=== PATIENT | female | born 1985 ===

== ENCOUNTER 2025-04-01 12:14 | Emergency (ER) | payer MEDICAID, SELFPAY ==
[2025-04-01 12:18] VITALS: BP 133/63; PULSE 78; RESP 16; TEMP 36.8; O2SAT 98; BMI 24.2
--- NOTE | 2025-04-01 12:25 | ED_ITS ---
HPI - General Adult General Chief complaint: General Medical Stated complaint: vaginal issues Time Seen by Provider: 04/01/25 14:10 Source: patient and emergency veterinary technician (senegalese - VOYCE) Mode of arrival: ambulatory Limitations: language barrier (senegalese) History of Present Illness ED Provider: RUBA ARGUETA PA-C HPI narrative: 39-year-old female presents to the ED today for evaluation of increased vaginal discharge x3 months. Endorses associated vaginal irritation and itching. Denies any vaginal bleeding, fever, chills, abdominal pain, or flank pain. She states she is not sexually active and denies concern for STDs. She was evaluated for these symptoms at urgent care last month. She states she was tested for STDs while there however never received these results. At the time, she was treated with nitrofurantoin and fluconazole however symptoms have remained unchanged. Related Data Previous Rx's ?Medication ?Instructions ?Recorded fluconazole 150 mg tablet 150 mg PO Q3D 2 doses #2 tab s 04/01/25 metronidazole 500 mg tablet 500 mg PO BID 7 days #14 t abs 04/01/25 Allergies Allergy/AdvReac Type Severity Reaction Status Date / Time No Known Allergies Allergy Verified 04/01/25 12:25 Review of Systems Review of Systems: Yes all other systems are reviewed and are negative PMFSH Past Medical History Attestation statement: The following information was validated with the patient. Source: old records reviewed and nursing notes reviewed Social History Social History Advance Directives: No Advance Directives Information Provided: Yes Physical Exam ED Vital Signs: Vital Signs - 24 hr 04/01/25 12:18 04/01/25 15:50 Temperature 98.2 F 98.2 F Pulse Rate 78 78 Respiratory Rate 16 16 Blood Pressure 133/63 133/63 Pulse Oximetry 98 98 Oxygen Delivery Method Room Air Room Air BMI result Body Mass Index 24.2 vital signs stable, afebrile General: Well appearing, in no acute distress. Skin: Warm, dry, intact. No rashes or lesions. Head: Normocephalic, atraumatic. EENT: Hearing is intact b/l. Conjunctiva clear. PERRLA. EOM intact. Moist mucous membranes.? Neck: Supple without LAD Cardiac: Chest wall symmetric. RRR Lungs: Normal respiratory effort without accessory muscle use. CTA bilaterally. Abdomen: Soft, non-tender, non-distended. No rebound tenderness or guarding. Positive BS x4. no cvat. Sensitive exam performed with Yumiko ADAM present in room to radiographer angiogram. External genitalia is normal in appearance without lesions, swelling, masses or tenderness. Vaginal canal is pink and moist without lesions. There is white discharge in the vaginal canal. No fishy odor noted. Cervix is non-tender without lesions or erosions. Uterus is non-tender and normal in size. Ovaries are non-tender without palpable masses or enlargement. No cervical motion tenderness on bimanual exam. Back: No midline spinous or paraspinal tenderness. No step off deformity. Ext: Upper and lower extremities atraumatic, without tenderness, deformity, swelling or erythema Neuro: AOx3. Normal speech. Ambulating with steady gait. Course Course Course Narrative: Katelyn Malloryaletha SENIOR WEB ARCHITECT 04/01 7367 This is a rapid medical exam. Deferred additional HPI, ROS, PE to primary provider. 39 yo female healthy here with white vaginal discharge >1 month despite being treated for a yeast infection. Would like STI testing Will obtain UA, ur preg, CT NG, BV panel VSS Reevaluation(s) Reevaluation #1: Urine does not demonstrate infection. Patient's exam is concerning for trich v BV infection- After discussion w/ patient, she will be treated with flagyl and diflucan. Will hold on CTNG treatments as these are less likely - swabs sent. Patient will be contacted with any positive results. Patient has remained stable throughout ED visit today. Discussed worrisome signs and symptoms and when to return to the ED. All questions answered at this time. Patient is agreeable with disposition and stable for discharge. Medical Decision Making Medical Decision Making MDM Narrative: 39-year-old female presents to the ED today for evaluation of increased vaginal discharge x3 months. vital signs stable, afebrile. she is well appearing and in NAD. her abdominal exam is benign. on exam, abdomen is soft, non-tender, non- distended. No rebound tenderness or guarding. Positive BS x4. no cvat. Sensitive exam performed with Yumiko ADAM present in room to radiographer angiogram. External genitalia is normal in appearance without lesions, swelling, masses or tenderness. Vaginal canal is pink and moist without lesions. There is white discharge in the vaginal canal. No fishy odor noted. Cervix is non-tender without lesions or erosions. Uterus is non-tender and normal in size. Ovaries are non-tender without palpable masses or enlargement. No cervical motion tenderness on bimanual exam. Differential diagnosis includes gonorrhea, BV, chlamydia, Trichomonas, UTI. unlikely PID. Plan for vaginal swabs, urinalysis and re-evaluation. Differential Diagnosis Differential Diagnoses: The differential diagnosis associated with the presentation includes as above. Admission/Observation not indicated Lab Data MDM Lab Attestation statement: I reviewed the patient's lab results. as above. Labs: Lab Results 04/01/25 04/01/25 Range/Units 12:40 15:27 Urine Color Yellow Urine Appearance Clear Urine pH 7.0 (5.0-9.0) Ur Specific Baldwin <= 1.005 (1.005-1.025) Urine Protein Negative (Neg-Trace) mg/dL Urine Glucose (UA) Negative (Negative) mg/dL Urine Ketones Negative (Negative) mg/dL Urine Blood Negative (Negative) Urine Nitrite Negative (Negative) Ur Leukocyte Esterase Trace H (Negative) Urine RBC 0-2 (0-2) /HPF Urine WBC 0-5 (0-5) /HPF Ur Squamous Epith Cells 0-2 (0-2) /HPF Urine Bacteria None Seen (None Seen) Hyaline Casts 0-2 (0-2) /LPF Urine Test NEGATIVE (NEGATIVE) Ur N gonorrhoeae DNA (PCR) NOT DETECTED (Not Detect.) Chlam trachomat DNA PCR NOT DETECTED (Not Detect.) Ur Chlamydia DNA (PCR) NOT DETECTED (Not Detect.) N.gonorrhoeae DNA (PCR) NOT DETECTED (Not Detect.) External Record Review External record reviewed: Inpatient record Prescription Management I considered prescription management with: Antibiotic (flagyl) and Other (diflucan) Social Determinants Patient?s care significantly limited by Social Determinants of Health including: Other Social Determinant of Health Critical Care Time Critical Care Time Critical Care Time: No Discharge Plan Discharge Clinical Impression: Vaginal discharge Patient Disposition: Home, Self-Care Instructions: Vaginal Discharge (ED) Additional Instructions: You have been evaluated in the Emergency Department today for concerns of v aginal discharge and irritation. You were tested today for gonorrhea, chlamydia, bacterial vaginosis, and trichomonas and the results are still pending. You will receive a phone call in 2-3 days with any positive results. I am treating you for bacterial vaginosis and suspected yeast infection. A single dose of diflucan (fluconzole) has been sent to your pharmacy to treat for trichomonas (yeast infection). I have sent flagyl which will treat for bacterial vaginosis. Take this as prescribed and to completion. Do not have sexual intercourse for 10 days or until you test negative for all STDs. If you have intercourse again with an untreated partner, you will be reinfected. Practice safe sex and use a condom. I have also provided you with a referral to he Women's Health doctor. You may call them to establish care. Will not call you. Return with any new or worsening symptoms. In the case of an emergency call 911. Hoy la evaluaron en el Departamento de Emergencias por presentar flujo vaginal e irritaci?n. Hoy le realizaron pruebas para gonorrea, clamidia, vaginosis bacteriana y tricomoniasis, y a?n se esperan los resultados. Recibir? tyson llamada en 2 o 3 d?as con los resultados positivos. La estoy tratando por vaginosis bacteriana y sospecha de candidiasis vaginal. Le envi? tyson dosis ?roxanne de Diflucan (fluconazol) a strickland farmacia para tratar la tricomoniasis (candidiasis vaginal). Tambi?n le envi? Flagyl para tratar la vaginosis bacteriana. T?mccarthy seg?n las indicaciones y complete el tratamiento. No tenga relaciones sexuales saige 10 d?as o hasta que obtenga un resultado negativo en todas las pruebas de ETS. Si tiene relaciones sexuales nuevamente con tyson gita que no díaz recibido tratamiento, se reinfectar?. Practique sexo seguro y use cond?n. Tambi?n le proporcion? tyson referencia para la ginec?loga. Puede llamarla para programar strickland atenci?n. No la llamar?. Regrese si presenta alg?n s?ntoma nuevo o si stacey s?ntomas empeoran. En claire de emergencia, llame al 911. Prescriptions: New metronidazole 500 mg tablet 500 mg PO BID 7 Days Qty: 14 0RF fluconazole 150 mg tablet 150 mg PO Q3D Qty: 2 0RF Rx Instructions: may repeat second dose 72 hrs after first dose if symptoms persist Referrals: [facility] [Provider Group] [facility] [place] [facility] [Provider Group] Physician,None [Primary Care Provider, Medical] Interventions: ED Discharge Assessment Last Done: 04/01/25 15:50 Discharge Date/Time: 04/01/25 15:50 Print Language: Slovak
[2025-04-01 12:48] LABS: Appearance Urine Clear; Glucose Urine UA Negative (Negative); PH 7.0 (5.0-9.0); Specific Gravity - Urine <= 1.005 (1.005-1.025); UMIC TRIGGER UACC YES
[2025-04-01 12:52] LABS: UPreg QC Valid YES
[2025-04-01 15:40] LABS: CT PCR Urine NOT DETECTED (Not Detect.); NG PCR Urine NOT DETECTED (Not Detect.)
[2025-04-01 15:50] VITALS: BP 133/63; PULSE 78; RESP 16; TEMP 36.8; O2SAT 98
[2025-04-02 09:48] LABS: Bacterial Vaginosis PCR POSITIVE (Negative); Candida Group PCR DETECTED (Not Detect); Candida glab krusei PCR NOT DETECTED (Not Detect); Trichomonas vaginalis PCR NOT DETECTED (Not Detect)
[2025-04-02 10:18] LABS: CT PCR NOT DETECTED (Not Detect.); NG PCR NOT DETECTED (Not Detect.)
== END 2025-04-01 15:50 | disposition home or self-care (01) ==
PROVIDERS: Nurse Practitioner Family; Physician Assistant Medical; Emergency Provider Emergency Medicine
DX: N89.8 Other specified noninflammatory disorders of vagina (principal)
CPT/HCPCS: 81001; 81025; 81515; 87491; 87591; 87661; 99282; 99283

== ENCOUNTER 2025-04-19 16:13 | Outpatient (REF) | payer MEDICAID, SELFPAY ==
--- OUTSIDE RECORDS SUMMARY | 2025-04-19 11:30 | XMS_ITS | Encounter Summary ---
Author Organization [employer] Address [address] [place] [address] [address] [place] [address] Care Team Providers Care Head Of Sales And Marketing Name Role Phone Jer Scott CNP Primary Care Provider [phone] Reason for Visit * Reason Comments Consult Consult ext wisdom t eeemerald Encounter Details Date Type Department Care Team ([facility] st Contact Info) Description 04/19/2025 11:30 AM EST Office Visit [facility] ADULT D[facility] [address] [place] [address] Sebastien Knott [address] [place] [address] Social History Tobacco Use Types Packs/Day Years Used Date Smoking Tobacco: Never Passive Smoke Exposure: Never Smokeless Tobacco: Never Depression Answer Date Recorded Patient Health Questionnaire-9 Score 0 04/19/2025 Patient Health Questionnaire-9 Score 0 04/19/2025 Last PHQ-9: Questionnaire Data Not on file 1 06/20/2024 Housing Stability Answer Date Recorded What is your housing situation today? I have tarah hernandez 04/19/[address] you li ve. Do you have problems with any of the following? None of the above 04/19/2025 Food Insecurity Answer Date Recorded Within the past 12 months, y ou worried that your food would run out before you got money to buy more: Never True 04/19/2025 Within the past 12 months,th e food you bought just didn't last and you didn't have enough money to get more: Never True 07/2024 Transportation Answer Date Recorded In the past 12 months, has l ack of transportation kept you from medical appts, meetings, work or from getting things needed for daily living? No 04/19/2025 Utilities Answer Date Recorded In the past 12 months, has t he electric, gas, oil or water company threatened to shut off services in your home? No 04/19/2025 Depression Answer Date Recorded Patient Health Questionnaire-2 Score 0 04/19/2025 Internet Access Answer Date Recorded Internet Access Q1 Yes 04/19/2025 Internet Access Q2 Not on file 04/19/2025 Comments No Sex and Gender Information Value Date Recorded Sex Assigned at Female 01/24/2025 11:15 AM EDT Legal Sex Female 11:14 AM EDT Gender Identity Female 01/24/2025 11:15 AM EDT Sexual Orientation Straight 01/24/2025 11 :15 AM EDT documented as of this encounter Functional Status * Over the past 2 weeks, how often have you been bothered by any of the following problems? Question Answer Date of Assessment Author Patient Health Questionnaire -2 Score 0 04/19/2025 2:32 PM Jose Corrales [place] * Little interest or pleasure in doing things Answer Date of Assessment Author Not at all 04/19/2025 2:32 PM EST [employer] Anna brush [place] * Feeling down, depressed, or hopeless Answer Date of Assessment Author Not at all 04/19/2025 2:32 PM EST [employer] Anna brush [place] * Trouble falling or staying asleep, or sleeping too much Answer Date of Assessment Author Not at all 04/19/2025 2:32 PM EST [employer] Anna brush [place] * Feeling tired or having little energy Answer Date of Assessment Author Not at all 04/19/2025 2:32 PM EST [employer] Anna brush [place] * Poor appetite or overeating Answer Date of Assessment Author Not at all 04/19/2025 2:32 PM EST [employer] Anna brush [place] * Feeling bad about yourself - or that you are a failure or have let yourself or your family down Answer Date of Assessment Author Not at all 04/19/2025 2:32 PM EST [employer] Anna brush [place] * Trouble concentrating on things, such as reading the newspaper or watching television Answer Date of Assessment Author Not at all 04/19/2025 2:32 PM EST [employer] Anna brush [place] * Moving or speaking so slowly that other people could have noticed? Or the opposite - being so fidgety or restless that you have been moving around a lot more than usual. Answer Date of Assessment Author Not at all 04/19/2025 2:32 PM EST [employer] Anna brush [place] * Thoughts that you would be better off or hurting yourself in some way Answer Date of Assessment Author Not at all 04/19/2025 2:32 PM EST [employer] Anna brush [place] * Patient Health Questionnaire-9 Score Answer Date of Assessment Author 0 04/19/2025 2:32 PM EST [employer] Anna brush [place] * Over the last 2 weeks, how often have you been bothered by any of the following problems? Question Answer Date of Assessment Author Feeling nervous, anxious, or on edge 0 04/19/2025 2:34 PM EST Jose Cisneros MA Not being able to stop or control worrying 0 04/19/2025 2:34 PM EST Jose Cisneros MA Worrying too much about different things 0 04/19/2025 2:34 PM EST Jose Cisneros MA Trouble relaxing 0 04/19/2025 2:34 PM EST D Anna Soto MA Being so restless that it is hard to sit still 0 04/19/2025 2:34 PM Jose Corrales MA Becoming easily annoyed or irritable 0 04/19/2025 2:34 PM EST Jose Cisneros MA Feeling afraid as if somethi ng awful might happen 0 04/19/2025 2:34 PM EST Jose Cisneros MA TEODORA-7 Total Score 0 04/19/2025 2:34 PM Anna Corrales MA documented as of this encounter Plan of Treatment Upcoming Encounters Date Type Department Care Team (Late st Contact Info) Description 05/24/2025 10:00 AM EST Office Visit [facility] ADULT D[facility] [address] [place] [address] Sebastien Knott [address] [place] [address] 06/22/2025 9:00 AM EST Procedure Visit [facility] P[facility] [address] [place] [address] Jer Scott CNP [address] [place] [address] documented as of this encounter Visit Diagnoses Not on filedocumented in this encounter Additional Health Concerns Assessment Noted Time PHQ-9 Depression Total Score: 0 04/19/20 2:32 PM EST documented as of this encounter Care Teams Head Of Sales And Marketing Relationship Specialty Start Date End Date Jer Scott CNP [address] [place] [address] PCP - General Family Medicine 04/19/25 documented as of this encounter
--- OUTSIDE RECORDS SUMMARY | 2025-04-19 14:00 | XMS_ITS | Encounter Summary ---
Author Organization [employer] Address [address] [place] [address] [address] [place] [address] Care Team Providers Care Corporate Compliance Officer Name Role Phone Jer Scott CNP Primary Care Provider [phone] Encounter Details Date Type Department Care Team ([facility] st Contact Info) Description 04/19/2025 2:00 PM EST Office Visit [facility] [address] [place], [place] [phone] Jer Scott CNP [address] [place], [place] [phone] Encounter to establish care (Primary Dx); Vaginal discharge Social History Tobacco Use Types Packs/Day Years [...] AM EDT documented as of this encounter Last Filed Vital Signs Vital Sign Reading Time Taken Comments Blood Pressure 110/76 04/19/2025 2:14 PM EST Pulse 86 04/19/2025 2:14 PM EST Temperature 36.6 C (97.9 F) 04/19/2025 2:14 PM EST Respiratory Rate 16 04/19/2025 2:14 PM EST Oxygen Saturation 99% 04/19/2025 2:14 PM EST Inhaled Oxygen Concentration - - Weight 67.1 kg (148 lb) 04/19/2025 2:14 PM EST Height 152.4 cm (5') 04/19/2025 2:14 PM EST Body Mass Index 28.9 04/19/2025 2:14 PM EST documented in this encounter Functional Status * Over the past 2 weeks, how often have you been bothered by any of the following problems? Question Answer Date of Assessment Author Patient Health Questionnaire -2 Score 0 04/19/2025 2:32 PM EST Jose Cisneros [place] * Little interest or pleasure in doing things Answer Date of Assessment Author Not at all 04/19/2025 2:32 PM EST [employer] Anna brush [place] * Feeling down, depressed, or hopeless Answer Date of Assessment Author Not at all 04/19/2025 2:32 PM EST [employer] Anna brush [place] * Trouble falling or staying asleep, or sleeping too much Answer Date of Assessment Author Not at all 04/19/2025 2:32 PM EST [employer] Anna brush [place] * Feeling tired or [...] Author Not at all 04/19/2025 2:32 PM JOSE [employer] Anna brush [place] * Moving or speaking so slowly that other people could have noticed? Or the opposite - being so fidgety or restless that you have been moving around a lot more than usual. Answer Date of Assessment Author Not at all 04/19/2025 2:32 PM EST [employer] Anna brush [place] * Thoughts that you would be better off or hurting yourself in some way Answer Date of Assessment Author Not at all 04/19/2025 2:32 PM EST [employer] Anna brush [place] * Patient Health Questionnaire-9 Score Answer Date of Assessment Author 0 04/19/2025 2:32 PM EST [employer] Anna brush [place] * Over the last 2 weeks, how often have you been bothered by any of the following problems? Question Answer Date of Assessment Author Feeling nervous, anxious, or on edge 0 04/19/2025 2:34 PM EST Jose Cisneros MA Not being able to stop or control worrying 0 04/19/2025 2:34 PM EST Melani-Jose Katz [place] Worrying too much about different things 0 04/19/2025 2:34 PM EST Jose Cisneros MA Trouble relaxing 0 04/19/2025 2:34 PM EST Anna Latif MA Being so restless that it is hard to sit still 0 04/19/2025 2:34 PM EST Jose Cisneros MA Becoming easily annoyed or irritable 0 04/19/2025 2:34 PM EST Jose Cisneros MA Feeling afraid as if somethi ng awful might happen 0 04/19/2025 2:34 PM Jose Corrales MA TEODORA-7 Total Score 0 04/19/2025 2:34 PM Anna Corrales MA documented as of this encounter Progress Notes * Jer Scott, ANALISA - 04/19/2025 2:00 PM EST Subjective: Angy Jack is a 39 y.o. female with PMH of panic attacks and vitiligowho presents to the office for a new patient visit. Previous PCP unknown. Interim history: Reports she was recently treated for an infection at external facility in [place]. She didn't receive a call regarding any of her results. She was prescribed flagyl per chart review. Current concerns: Vaginal discharge: she is endorsing white, chunky discharge with itching. She is sexually active. She reports having full STI panel at external facility. She declines repeat full panel today, she agrees to vaginal self swab. Problem List[1] Surgical History[2] Family History[3] Social History Living situation: has 3 children Employment/Education: not curently Diet/exercise: not reported Substance use: denies all substance use Sexual activity: yes, AMAB partners Contraception: none, not interested in discussing contraception Mental health: No data recorded No data recorded Patient's last menstrual period was 04/16/2025. They are regular occurring each month. Allergies[4] Review of Systems Vitals: 04/19/25 1414 BP: 110/76 BP Location: Left arm Patient Position: Sitting BP Cuff Size: Adult Pulse: 86 Resp: 16 Temp: 97.9 ??F (36.6 ??C) TempSrc: Oral SpO2: 99% Weight: 148 lb (67.1 kg) Height: 5' (1.524 m) Physical Exam Constitutional: Appearance: Normal appearance. She is normal weight. Cardiovascular: Rate and Rhythm: Normal rate and regular rhythm. Pulses: Normal pulses. Heart sounds: Normal heart sounds. No murmur heard. No friction rub. No gallop. Pulmonary: Effort: Pulmonary effort is normal. No respiratory distress. Breath sounds: Normal breath sounds. No wheezing or rales. Neurological: General: No focal deficit present. Mental Status: She is alert and oriented to person, place, and time. Psychiatric: Mood and Affect: Mood normal. Behavior: Behavior normal. Thought Content: Thought content normal. Judgment: Judgment normal. Assessment & Plan Encounter to establish care 1. Anticipatory guidance discussed. Specific topics reviewed: PMHx, PSHx, PFHx, drugs, ETOH, and tobacco, importance of regular dental care, importance of regular exercise, importance of varied diet, minimize junk food, and sex; STD and prevention as appropriate. 2. Age appropriate screenings discussed and recommended. 3. Routine labs ordered today. Orders: HIV-1/2 Antigen and Antibodies, Fourth Generation, with Reflexes; Future Hepatitis C Antibody with Reflex to HCV, RNA, Quantitative, Real-Time PCR; Future CBC auto differential; Future Lipid Panel, Standard; Future Comprehensive Metabolic Panel; Future Vaginal discharge Due to patient's symptoms and recent antibx history for vaginal infection, I will treat empiricallyfor elizabet infection. We will await results for BV swab and make changes to plan as appropriate We will alsop schedule an appointment for f/u for updated pap smear. Orders: Bacterial Vaginosis Panel fluconazole (Diflucan) 150 MG tablet; Take 1 tablet (150 mg) by mouth 1 (one) time for 1 dose. Current Medications[5] Immunization History Administered Date(s) Administered Influenza, IIV3, injectable 03/01/2014, 03/23/2015, 03/12/2016, 07/03/2017 PPD Test 03/26/2016 Tdap 05/03/2014, 08/22/2016, 03/09/2020 No follow-ups on file. [1] Patient Active Problem List Diagnosis Arcuate uterus Panic attacks Vitiligo [2] No past surgical history on file. [3] No family history on file. [4] No Known Allergies [5] Current Outpatient Medications Medication Sig Dispense Refill aspirin 81 MG chewable tablet Use 81 mg in the mouth or throat Once per day. metroNIDAZOLE (Flagyl) 500 MG tablet Take 1 tablet by mouth 2 times daily. nitrofurantoin, macrocrystal-monohydrate, (Macrobid) 100 MG capsule Take 1 capsule by mouth 2 timesdaily. No current facility-administered medications for this visit. documented in this encounter Plan of Treatment Upcoming Encounters Date Type Department Care Team (Late st Contact Info) Description 05/24/2025 10:00 AM EST Office Visit [facility] [address] [place] [address] Sebastien Knott [address] [place] [address] 06/22/2025 9:00 AM EST Procedure Visit [facility] [address] [place] [address] Jer Scott CNP [address] [place] [address] Scheduled Orders Name Type Priority Associated Diagnoses Orde r Schedule HIV-1/2 Antigen and Antibodies, Fourth Generation, with Reflexes Lab Routine Encounter to establish care Expected: 04/19/2025 (Approximate), Expires: 04/19/2026 Hepatitis C Antibody with Reflex to HCV, RNA, Quantitative, Real-Time PCR Lab Routine Encounter to establish care Expected: 04/19/2025, Expires: 04/19/2026 CBC auto differential Lab Routine Encounter to establish care Expected: 04/19/2025 (Approximate), Expires: 04/19/2026 Lipid Panel, Standard Lab Routine Encounter to establish care Expected: 04/19/2025 (Approximate), Expires: 04/19/2026 Comprehensive Metabolic Panel Lab Routine Encounter to establish care Expected: 04/19/2025 (Approximate), Expires: 04/19/2026 Bacterial Vaginosis Panel Microbiology Routine Vaginal discharge Ordered: 04/19/2025 documented as of this encounter Visit Diagnoses Diagnosis Encounter to establish care- Primary Vaginal discharge Leukorrhea, not specified as infective documented in this encounter Additional Health Concerns Assessment Noted Time PHQ-9 Depression Total Score: 0 04/19/20 2:32 PM EST documented as of this encounter Care Teams Corporate Compliance Officer Relationship Specialty Start Date End Date Jer Scott CNP [address] [place] [address] PCP - General Family Medicine 04/19/25 documented as of this encounter
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
--- OUTSIDE RECORDS SUMMARY | 2025-04-19 18:54 | XMS_ITS | Encounter Summary ---
Author Organization [employer] Address [address] [facility] [address] [place] [address] Care Team Providers Care Eye Dropper Assembler Name Role Phone Jer Scott ANALISA Primary Care Provider [phone] [phone] Encounter Details Date Type Department Care Team (Latest Contact Info) Description 04/19/2025 Travel Social History Tobacco Use Types Packs/Day Years [...] -2 Score 0 04/19/2025 2:32 PM EST Polo-ColonJose [place] * Little interest or pleasure in [...] Not at all 04/19/2025 2:32 PM EST Polo-C Anna arciniega [place] * Feeling tired or having little [...] relaxing 0 04/19/2025 2:34 PM EST D madrigalAnna Montes De Oca [place] Being so restless that it is hard to sit still 0 04/19/2025 2:34 PM EST Jose Cisneros MA Becoming easily annoyed or irritable 0 04/19/2025 2:34 PM EST Melani-Jose Katz MA Feeling afraid as if somethi ng awful might happen 0 04/19/2025 2:34 PM EST Jose Cisneros MA TEODORA-7 Total Score 0 04/19/2025 2:34 PM EST Anna Cisneros MA documented as of this encounter Plan of Treatment Upcoming Encounters Date Type Department Care Team (Late st Contact Info) Description 05/24/2025 10:00 AM EST Office Visit [facility] ADULT DENTAL [address] [place] [address] Sebastien Knott [address] [place] [address] 06/22/2025 9:00 AM EST Procedure Visit [facility] MED & PEDS [address] [place] [address] Jer Scott CNP [address] [place] [address] documented as of this encounter Visit Diagnoses Not on filedocumented in this encounter Additional Health Concerns Assessment Noted Time PHQ-9 Depression Total Score: 0 04/19/20 2:32 PM EST documented as of this encounter Care Teams Eye Dropper Assembler Relationship Specialty Start Date End Date Jer Scott CNP [address] [place] [address] PCP - General Family Medicine 04/19/25 documented as of this encounter
--- OUTSIDE RECORDS SUMMARY | 2025-04-19 18:54 | XMS_ITS | Encounter Summary ---
Author Organization [employer] Address [address] [facility] [address] [place] [address] Care Team Providers Care Functional Analyst Name Role Phone Tyler Morrissole HAUSER Primary Care Provider +1 [phone] Reason for Visit * Reason Onset Date Comments chart prep 04/19/2025 Encounter Details Date Type Department Care Team ([facility] st Contact Info) Description 04/19/2025 Telephone [facility] MED & PEDS [address] [place] [id number] Blayne Machias, [place] chart prep Social History Tobacco Use Types Packs/Day Years [...] AM EDT documented as of this encounter Miscellaneous Notes * Telephone Encounter - Anna Cisneros [place] - 04/19/2025 9:43 AM EST Chart Prep Labs: not applicable Images: not applicable Referrals: not applicable Vaccines due: Covid, Flu, Hep B, and HPV Screenings: pap smear and STI screening Overdue care gaps: SBIRT, SDOH, PHQ-9, TEODORA-7, and Disability screen documented in this encounter Plan of Treatment Upcoming Encounters Date Type Department Care Team (Late st Contact Info) Description 05/24/2025 10:00 AM EST Office Visit [facility] ADULT DENTAL [address] [place] [address] Sebastien Knott [address] [place] [address] 06/22/2025 9:00 AM EST Procedure Visit [facility] MED & PEDS [address] [place] [address] Jer Scott CNP [address] [place] [address] documented as of this encounter Visit Diagnoses Not on filedocumented in this encounter Additional Health Concerns Assessment Noted Time PHQ-9 Depression Total Score: 0 04/19/20 25 2:32 PM EST documented as of this encounter Care Teams Functional Analyst Relationship Specialty Start Date End Date Jer Scott CNP [address] [place] [address] PCP - General Family Medicine 04/19/25 documented as of this encounter
[2025-04-19 22:40] LABS: Bacterial Vaginosis PCR NEGATIVE (Negative); Candida Group PCR DETECTED (Not Detect); Candida glab krusei PCR NOT DETECTED (Not Detect); Trichomonas vaginalis PCR NOT DETECTED (Not Detect)
== END 2025-04-19 16:14 | disposition home or self-care (01) ==
LOC: HO.CHCLNP 16:13
DX: N89.8 Other specified noninflammatory disorders of vagina (principal)
CPT/HCPCS: 81515

== ENCOUNTER 2025-05-15 13:13 | Emergency (ER) | payer MEDICAID, OTHER, SELFPAY ==
[2025-05-15 14:03] VITALS: BP 117/56; PULSE 81; RESP 16; TEMP 36.6; O2SAT 98; BMI 28.2
--- NOTE | 2025-05-15 14:08 | ED_ITS ---
HPI - General Adult General Chief complaint: General Medical Stated complaint: Vaginal Infection Time Seen by Provider: 05/15/25 21:04 Source: patient Mode of arrival: ambulatory Limitations: no limitations History of Present Illness ED Provider: Dr. Ann Marie Skinner HPI narrative: Patient comes to the emergency room complaining of 3 days of vaginal discharge, yellowish whitish, itching, and burning with urination. Patient has been here twice within the last couple of months, tested positive for bacteria vaginosis and Candidiasis. Patient denies abdominal pain. Denies nausea vomiting or diarrhea. Denies hematuria or dysuria. Related Data Previous Rx's ?Medication ?Instructions ?Recorded fluconazole 150 mg tablet 150 mg PO Q3D 2 doses #2 tab s 04/01/25 metronidazole 500 mg tablet 500 mg PO BID 7 days #14 t abs 04/01/25 metronidazole 500 mg tablet 500 mg PO BID #14 tabs miconazole nitrate 2 % vaginal 1 appful vaginal BEDTIM E 7 days 05/15/25 cream (Miconazole-7) #45 grams vit no.95-ferrous 1 tab PO DAILY #30 tabs fumarate 28 mg-folic acid 800 mcg tablet ( Multivitamins) Allergies Allergy/AdvReac Type Severity Reaction Status Date / Time No Known Allergies Allergy Verified 05/15/25 14:06 Review of Systems 2 Review of Systems: Constitutional : No Weight loss, No Fever, No Chills, No Night Sweats, No Fatigue, No Malaise ENT/Mouth : No Hearing loss, No Ear Pain, No Nasal Congestion, No Sinus Pain, No Hoarseness, No sore throat, No Rhinorrhea, No Swallowing Difficulty Eyes: No Eye Pain, No Swelling, No Redness, No Foreign Body, No Discharge, No Vision Changes Cardiovascular : No Chest Pain, No SOB, No Dyspnea on Exertion, No Orthopnea, No Edema, No Palpitations Respiratory : No Cough, No Sputum, No Wheezing, No Smoke Exposure, No Dyspnea Gastrointestinal : No Nausea, No Vomiting, No Diarrhea, No Constipation, No abdominal Pain, No Hematochezia, No Melena Genitourinary : Complaining of vaginal discharge, itchingNo Dysuria, No Urinary Frequency, No Hematuria, No Urinary Incontinence, No Urgency, No Flank Pain, No Urinary Flow Changes, No Hesitancy Musculoskeletal : No joint pain, No Myalgias, No Joint Swelling Skin : No Skin Lesions, No rash Neuro : No Weakness, No Numbness, No Paresthesias, No Loss of Consciousness, No Dizziness, No Headache Psych : No Anxiety/Panic, No Depression, No SI/HI/AH/VH, No Social Issues, Heme/Lymph: No Bruising, No Bleeding,No Lymphadenopathy Endocrine : No Polyuria, No Polydipsia, No Temperature Intolerance COUNT INCLUDES THE [facility] Social History Social History (System 04/21/25 @ 12:23 by Brenda Nguyen) Unable to assess alcohol history related to: Unknown Use of substances other than those prescribed or required for medical reasons: Unknown Advance Directives: No Advance Directives Information Provided: Yes Do you have a plan to hurt others: No Plan Physical Exam ED Exam Exam: Appearance: Alert. Oriented X3. No acute distress. Eyes: Pupils equal, round and reactive to light. ENT: Pharynx normal. Neck: Normal inspection. Neck supple. No lymph nodes noted. No crepitus CVS: Normal heart rate and rhythm. Pulses normal. Normal S1 and S2 Respiratory: No respiratory distress. Breath sounds normal. No Wheezing. No rales Abdomen: Soft and nontender. No rigidity. No distention. Patient has copious vaginal discharge, candidiasis in the outside, greenish grayish discharge from the inside Skin: Skin warm and dry. Normal skin color. Normal skin turgor. Extremities: No lower extremity edema. No Lacerations. No Rash Neuro: Oriented X 3. No motor deficit. No sensory deficit. Moving all extremities. No slurred speech. CN 2 through 12 grossly intact Psych: calm, cooperative, normal affect Vital Signs: Vital Signs - 24 hr 05/15/25 14:03 05/15/25 21:40 05/15/25 23:04 Temperature 98 F 98 F 98.4 F Pulse Rate 81 78 81 Respiratory Rate 16 18 14 Blood Pressure 117/56 L 118/62 120/82 Pulse Oximetry 98 98 99 Oxygen Delivery Method Room Air Room Air Room Air BMI result Body Mass Index 28.2 Course Course Course Narrative: Rapid medical examination performed in triage by Sahra Banegas PA-C: Patient is a 39 year old female presenting to the emergency department with vaginal discharge and irritation. Detailed physical exam and review of systems are deferred to the overhauler bus truck. Swabs ordered. Patient placed back in the waiting room pending room availability and results. Medications Administered Discontinued Medications Generic Name Dose Route Start Last Admin Trade Name Ro PRN Reason Stop Dose Admin Fluconazole 150 mg 05/15/25 21:33 05/15/25 21:39 Fluconazole 150 Mg Tablet PO 05/15/25 21:34 150 mg ONCE ONE Administration Metronidazole 500 mg 05/15/25 21:33 05/15/25 21:39 Metronidazole 500 Mg Tablet PO 05/15/25 21:34 500 mg ONCE ONE Administration Medical Decision Making Medical Decision Making [facility] Narrative: earlier today, patient was given swabs to sober herself. , however, patient states That she might not have swabbed herself correctly. Therefore, we ordered new swabs and I did myself during the cervical exam. Patient was given p.o. fluconazole and metronidazole. A prescription has been sent to the patient's pharmacy. patient's test was positive. Patient is very surprised. Blood hCG and labs were offered, patient would like to proceed with the lab work blood work shows an hCG level of 16,117, patient is O positive. There is no vaginal bleeding Present. Patient is happy with the news patient states that she has an OBGYN who she will call tomorrow to schedule an appointment vitamins have been sent to the patient's pharmacy Differential Diagnosis Differential Diagnoses: The differential diagnosis associated with the presentation includes ( Bacterial vaginosis, Trichomonas, candidiasis) Lab Data [facility] Lab Attestation statement: I reviewed the patient's lab results. 05/15/25 22:09 05/15/25 22:09 Labs: Lab Results 05/15/25 05/15/25 Range/Units 15:41 22:09 WBC 7.6 (4.8-10.8) X10*3/uL RBC 4.70 (4.20-5.50) X10*6/uL Hgb 13.1 (12.0-16.0) g/dl Hct 38.7 (37.0-47.0) % MCV 82.3 (80.0-98.0) fL MCH 27.9 (27.0-33.0) pg MCHC 33.9 (31.0-35.0) g/dl RDW 12.9 (11.0-16.0) % Plt Count 273 (160-400) X10*3/uL MPV 11.3 (9.4-12.3) fL Immature Gran % (Auto) 0.3 (0.0-0.4) % Neut % (Auto) 61.6 (45-73) % Lymph % (Auto) 31.0 (20-40) % [place] % (Auto) 5.5 (2-11) % Eos % (Auto) 0.8 (0-4) % Baso % (Auto) 0.8 (0-2) % Lymph # (Auto) 2.4 (1.2-4.9) X10*3/uL [place] # (Auto) 0.4 (0.1-1.2) X10*3/uL Eos # (Auto) 0.1 (0.0-0.4) X10*3/uL Baso # (Auto) 0.1 (0.0-0.2) X10*3/uL Abs Immat Gran (auto) 0.02 (0.00-0.03) X10*3/uL Absolute Neuts (auto) 4.7 (2.0-8.3) x10*3/uL Absolute Nucleated RBC 0.000 (0.0-0.012) X10*3/uL Nucleated RBC % (auto) 0.0 (0.0-0.2) /100WBC Sodium 141 (135-145) mmol/L Potassium 3.9 (3.3-5.1) mmol/L Chloride 106 (96-108) mmol/L Carbon Dioxide 23 (22-29) mmol/L Anion Gap 16 (12-20) BUN 5 L (9-16) mg/dL Creatinine 0.59 (0.5-1.4) mg/dL Estim Creat Clear Calc 109.2 Estimated GFR > 60 Random Glucose 84 (60-115) mg/dL Calcium 9.7 (8.4-10.2) mg/dL Total Bilirubin 0.8 (0.0-1.0) mg/dL Direct Bilirubin 0.3 (0.0-0.5) mg/dL AST 22 (5-31) U/L ALT 10 (0-31) U/L Alkaline Phosphatase 52 (39-117) U/L Total Protein 8.0 (6.5-8.0) g/dL Albumin 5.1 H (3.5-5.0) g/dL Beta HCG, Quant 80355 mIU/mL Urine Color Yellow Urine Appearance Clear Urine pH 6.5 (5.0-9.0) Ur Specific [place] <= 1.005 (1.005-1.025) Urine Protein Negative (Neg-Trace) mg/dL Urine Glucose (UA) Negative (Negative) mg/dL Urine Ketones 15 (Negative) mg/dL Urine Blood Negative (Negative) Urine Nitrite Negative (Negative) Ur Leukocyte Esterase Small (1+) H (Negative) Urine RBC 0-2 (0-2) /HPF Urine WBC 0-5 (0-5) /HPF Ur Squamous Epith Cells 0-2 (0-2) /HPF Urine Bacteria None Seen (None Seen) Hyaline Casts 0-2 (0-2) /LPF Urine Test POSITIVE H (NEGATIVE) Blood Type O Positive Discharge Plan Discharge Clinical Impression: Bacterial vaginosis, Candidiasis, Patient Disposition: Home, Self-Care Instructions: Bacterial Vaginosis (ED), Vaginal Discharge (ED), (ED) Additional Instructions: Please follow-up with your primary care physician tomorrow. If you have any worsening or new symptoms, please return to the emergency room or call 911 Prescriptions: New metronidazole 500 mg tablet 500 mg PO BID Qty: 14 0RF miconazole nitrate [Miconazole-7] 2 % cream 1 appful vaginal BEDTIME 7 Days Qty: 45 0RF PNV no.95-ferrous fumarate-FA [ Multivitamins] 28 mg iron- 800 mcg tablet 1 tab PO DAILY Qty: 30 2RF No Action metronidazole 500 mg tablet 500 mg PO BID 7 Days Qty: 14 0RF fluconazole 150 mg tablet 150 mg PO Q3D Qty: 2 0RF Rx Instructions: may repeat second dose 72 hrs after first dose if symptoms persist Print Language: British
[2025-05-15 16:00] LABS: Appearance Urine Clear; Glucose Urine UA Negative (Negative); PH 6.5 (5.0-9.0); Specific Gravity - Urine <= 1.005 (1.005-1.025); UMIC TRIGGER UACC YES
[2025-05-15 17:03] LABS: UACC Culture Trigger YES
--- OUTSIDE RECORDS SUMMARY | 2025-05-15 21:10 | XMS_ITS | Clinical Summary ---
Author Organization [email or web address] Address [address] [place] [address] [address] [place] [address] Care Team Providers Care Body Piercer Name Role Phone Tyler Morrissole HAUSER Primary Care Provider [phone] [phone] Allergies No known active allergies Medications metroNIDAZOLE (Flagyl) 500 MG tablet Take 1 tablet by mouth 2 times daily. 04/01/20 025 Discontinued( erapy completed) nitrofurantoin , macrocrystal-m onohydrate, (Macrobid) 100 MG capsule Take 1 capsule by mouth 2 times daily. 03/09/20 25 025 Discontinued aspirin 81 MG chewable tablet Use 81 mg in the mouth or throat Once per day. 10/17/19 025 Discontinued fluconazole (Diflucan) 150 MG tabletIndicati ons:Vaginal discharge Take 1 tablet (150 mg) by mouth 1 (one) time for 1 dose. 1 tablet 04/19/20 25 025 Active Problems Problem Noted Date Diagnosed Date [...] sent. REFERRAL TO TELEMEDICINE - DERMATOLOGY Order: [id number] Status: Final result Visible to patient: No (Not Released) Dx: Hypopigmented skin lesion, possible V... Impression Date Imaged: 06/25/17 Consult Priority: Medium (appointment within 2-4 weeks) Consulting Doctor: Srinivasan Chau,Ph.D., [place] Consulting Practice: [facility] - Dr. Mattson Differential Diagnoses: vitiligo [...] Delivered 03-22-2020 Low Risk Routine PCP Mom: ИВНА Canales PCP Baby: Regular OB provider: Expects: [...] has still not done as of 25+5 wks>[place] assisting the pt [x] Tubal ligation addressed (24+)>Declined 01/31/20 [x] 26+ week labs (26'0+) ordered 12/21/19 [] TDaP (28+)>patient refused 12/21/19. Counseled could reduce the risk of baby dying of this disease [x] Rhogam given if Rh neg (28) - Rh (-) [x] STD re-screen (36+) .[id number] - n/a [x] GBS sent (36'0+) [x] [...] (reported by phone), start Diflucan 150 mg dweekly x 6 months 03/26/2015: Another vaginal yeast infection--> Diflucan. Yeast culture: Rare elizabet albicans 02/05/2015: Vaginal yeast infection--> Diflucan--> good response History of delivery 11/20/2014 04/19/2025 Overview (04/19/2025): 03/26/16: APAS labs neg 06/2014: Delivered @34 weeks due to severe IUGR with elevated S:D ratios. 3 lb 10 oz. Baby did well. Encounters Date Type Department Care Team Description 05/15/2025 Orders Only GENERIC EXTERNAL DATA DEPARTMENT Provider, Generic External Data 05/02/2025 Telephone [facility] MEDICINE [address] [place] [address] Jer Scott CNP Nurse Triage 04/19/2025 2:00 PM EST Office Visit [facility] MED & PED[facility] [address] [place] [address] Jer Scott CNP Encounter to establish care (Primary Dx); Vaginal discharge 04/19/2025 11:30 AM EST Office Visit [facility] ADULT DENTAL [address] [place] [address] Sebastien Knott 04/19/2025 Travel 04/19/2025 Telephone [facility] [address] [place] [address] Anna Cisneros MA chart prep 03/27/2025 3:00 PM EST Office Visit [facility] ADULT DENTAL [address] [place] [address] Ashish Wilder Dental calculus (Primary Dx); Periodontal disease; Dental caries 03/06/2025 Telephone [facility] INS ENROLLMENT [address] [place] [address] Angy Moreno MD from Last 3 Months [...] Care Team (Late st Contact Info) Description 06/14/2025 1:00 PM EST Office Visit [facility] ADULT DENTAL [address] [place] [address] Cash Rios, FAVIANS [address] [place] [address] 06/22/2025 9:00 AM EST Procedure Visit [facility] MED & PEDS [address] [place] [address] Tyler Morrissole, SENIOR JAVA PROGRAMMER [address] [place] [address] Health Maintenance Due Date Last Done Comments Family Planning (PISQ) 2001 HPV Vaccines (1 - 3-dose series) 2001 Hepatitis C Screening 2004 Hepatitis B Vaccines (1 of 3 - 19+ 3-dose series) 2005 Pap Smear 10/07/2007 Cervical Cancer Screening 2016 HPV/Cotest 2016 COVID-19 Vaccine (2024- season) 2025 Influenza Vaccine (#1) 2025 8, 03/12/2016, 03/23/2015, Additional history exists Dental Oral Exam 09/25/2025 03/27/2025 Dental Prophylaxis 09/25/2025 03/27/2025 Dental X-Ray: Bitewings 03/28/2026 03/27/2025 Alcohol/Substance Use Screening 04/19/2026 04/19/2025 Depression Screening 04/19/2026 04/19/2025, 04/19/20 25 Disability Screening 04/19/2026 04/19/2025 SDOH Screening 04/19/2026 04/19/2025 Tobacco Screening 04/19/2026 04/19/2025 Dental X-Ray: Full Mouth 04/20/2028 04/19/2025, 03/18 DTaP/Tdap/Td Vaccines (4 - Td or Tdap) [...] Procedure Name Priority Date/Time Associated Diagnosis Comments URINALYSIS, COMPLETE, WITH REFLEX TO CULTURE Routine 05/15/2025 3:41 PM EST BACTERIAL VAGINOSIS PANEL Routine 04/19/2025 2:36 PM EST Vaginal discharge CASE PRESENTATION, DETAILED AND EXTENSIVE TREATMENT PLANNING Routine 04/19/2025 11:30 AM EST PANORAMIC RADIOGRAPHIC IMAGE Routine 04/19/2025 11:30 AM EST CONSULTATION - DIAGNOSTIC SERVICE PROVIDED BY DENTIST OR PHYSICIAN OTHER THAN REQUESTING DENTIST OR PHYSICIAN Routine 04/19/2025 11:30 AM EST COMPREHENSIVE ORAL EVALUATION - NEW OR ESTABLISHED PATIENT Routine 03/27/2025 3:00 PM EST Periodontal disease Dental caries CASE PRESENTATION, DETAILED AND EXTENSIVE TREATMENT PLANNING Routine 03/27/2025 3:00 PM EST Periodontal disease Dental caries ORAL HYGIENE INSTRUCTIONS Routine 03/27/2025 3:00 PM EST Periodontal disease [...] 12:00 AM EST from Last 3 Months Results * (ABNORMAL) Urinalysis, Complete, with Reflex to Culture (05/15/2025 3:41 PM EST) Color Urine Yellow [facility] Appearance Urine Clear [facility] PH 6.5 5.0 - 9.0 [facility] Glucose Urine UA Negative Negative mg/dL [facility] Urine Blood Negative Negative [facility] Specific [place] - Urine <=1.005 1.005 - 1.025 [facility] Urine Protein Negative Neg-Trace mg/dL [facility] Urine Ketones 15 Negative mg/dL [facility] Nitrite Urine Negative Negative [facility] Leukocyte Esterase Urine Small (1+)(A) Negative [facility] RBC Urine 0-2 0 - 2 /HPF [facility] Urine WBC 0-5 0 - 5 /HPF [facility] Urine Squamous Epithelial Cell 0-2 0 - 2 /HPF [facility] Urine Bacteria None Seen None Seen [facility] Hyaline Casts, Urine 0-2 0 - 2 /LPF [facility] 05/15/2025 3:41 PM EST 05/15/2025 3:49 PM EST Narrative [facility] - 05/15/2025 5:04 PM EST Urine, Clean Catch us Generic External Data Provider LAB URINE ORDERAB LES Final Result [facility] [address] [place] [phone] * (ABNORMAL) Bacterial Vaginosis Panel (04/19/2025 2:36 PM EST) TRICHOMONAS VAGINALIS DETECTION BY PCR NOT DETECTED Not Detect [facility] BACTERIAL VAGINOSIS DETECTION BY PCR NEGATIVE Negative [facility] Comment:The BV organism targ ets of the Xpert Xpress MVP test can becommensal in women; Xpert Xpress MVP positive results forbacterial vaginosis should be considered in conjunction withother clinical and patient information to determine thedisease status. Organisms that are not detected by the XpertXpress MVP test have also been reported to be associatedwith BV and aerobic vaginitis.The Xpert Xpress MVP test performance has not been evaluatedin patients under the age of 14. ELIZABET GROUP DETECTION BY PCR DETECTED(A) Not Detect [facility] Elizabet glab krusei PCR NOT DETECTED Not Detect [facility] Swab Vaginal structure / Unknown 04/19/2025 2:36 PM EST 04/19/2025 6:10 PM EST [facility] LAB MICROBIOLOGY - GENERA L ORDERABLES Final Result [facility] [address] [place] [address] [phone] from Last 3 Months Insurance [facility] LIMITED HS FULL DENTAL-[facility] MEDICAID LIMITED ADULT DENTAL - HSN FULL (MEDICAID) Care Teams Body Piercer Relationship Specialty Start Date End Date Jer Scott CNP [address] [place] [id number] PCP - General Family Medicine 04/19/25
--- OUTSIDE RECORDS SUMMARY | 2025-05-15 21:10 | XMS_ITS | Encounter Summary ---
Author Organization [employer] Address [address] [facility] [address] [place] [address] Care Team Providers Care Body Recall Instructor Name Role Phone Tyler Jer ANALISA Primary Care Provider [phone] [phone] Encounter Details Date Type Department Care Team (Late st Contact Info) Description 05/15/2025 Orders Only GENERIC EXTERNAL DATA DEPARTMENT Provider, Generic External Data Social History Tobacco Use Types Packs/Day Years [...] AM EDT documented as of this encounter Plan of Treatment Upcoming Encounters Date Type Department Care Team (Late st Contact Info) Description 06/14/2025 1:00 PM EST Office Visit [facility] ADULT DENTAL [address], [place] [phone] Cash Rios, FAVIANS [address] [place] [address] 06/22/2025 9:00 AM EST Procedure Visit [facility] MED & PEDS [address], [place] [phone] Jer Scott, BEAD WIRE INSULATOR [address] [place], [place] [phone] documented as of this encounter Procedures Procedure Name Priority Date/Time Associated Diagnosis Comments URINALYSIS, COMPLETE, WITH REFLEX TO CULTURE Routine 05/15/2025 3:41 PM EST documented in this encounter Results * (ABNORMAL) Urinalysis, Complete, with Reflex to Culture (05/15/2025 3:41 PM EST) Color Urine Yellow [facility] Appearance Urine Clear [facility] PH 6.5 5.0 - 9.0 [facility] Glucose Urine UA Negative Negative mg/dL [facility] Urine Blood Negative Negative [facility] Specific [place] - Urine <=1.005 1.005 - 1.025 [facility] Urine Protein Negative Neg-Trace mg/dL [facility] Urine Ketones 15 Negative mg/dL [facility] Nitrite Urine Negative Negative [facility] Leukocyte Esterase Urine Small (1+)(A) Negative [facility] RBC Urine 0-2 0 - 2 /HPF [facility] Urine WBC 0-5 0 - 5 /HPF [facility] Urine Squamous Epithelial Cell 0-2 0 - 2 /HPF [facility] Urine Bacteria None Seen None Seen [facility] Hyaline Casts, Urine 0-2 0 - 2 /LPF [facility] 05/15/2025 3:41 PM EST 05/15/2025 3:49 PM EST Narrative [facility] - 05/15/2025 5:04 PM EST Urine, Clean Catch us Generic External Data Provider LAB URINE ORDERAB LES Final Result [facility] [address] [place] [phone] documented in this encounter Visit Diagnoses Not on filedocumented in this encounter Additional Health Concerns Assessment Noted Time PHQ-9 Depression Total Score: 0 04/19/20 25 2:32 PM EST documented as of this encounter Care Teams Body Recall Instructor Relationship Specialty Start Date End Date Jer Scott CNP [address] [place] [phone] PCP - General Family Medicine 04/19/25 documented as of this encounter
[2025-05-15 21:40] VITALS: BP 118/62; PULSE 78; RESP 18; TEMP 36.6; O2SAT 98
[2025-05-15 21:53] LABS: UPreg QC Valid YES
[2025-05-15 22:15] LABS: MANUAL DIFF FLAG NO
[2025-05-15 22:18] LABS: Hematocrit 38.7 % (37.0-47.0); Hemoglobin 13.1 g/dl (12.0-16.0); Imm Gran Abs Auto 0.02 X10*3/uL (0.00-0.03); Imm Gran Pct Auto 0.3 % (0.0-0.4); Lymphocytes Absolute Auto 2.4 X10*3/uL (1.2-4.9); Mean Corpuscular HGB Conc 33.9 g/dl (31.0-35.0); Mean Corpuscular Hemoglobin 27.9 pg (27.0-33.0); Mean Corpuscular Volume 82.3 fL (80.0-98.0); NRBC Abs Auto 0.000 X10*3/uL (0.0-0.012); NRBC Pct Auto 0.0 /100WBC (0.0-0.2); Platelet Count 273 X10*3/uL (160-400); Red Blood Count 4.70 X10*6/uL (4.20-5.50); White Blood Count 7.6 X10*3/uL (4.8-10.8)
[2025-05-15 22:35] LABS: Alanine Aminotransferase 10 U/L (0-31); Albumin Level 5.1 g/dL (3.5-5.0); Alkaline Phosphatase 52 U/L (39-117); Anion Gap 16 (12-20); Aspartate Amino Transferase 22 U/L (5-31); Blood Urea Nitrogen 5 mg/dL (9-16); Calcium 9.7 mg/dL (8.4-10.2); Carbon Dioxide 23 mmol/L (22-29); Chloride 106 mmol/L (96-108); Creatinine Clr Calc Pharmacy 109.2; Estimated Glomerular Filt Rate > 60; Potassium 3.9 mmol/L (3.3-5.1); Sodium 141 mmol/L (135-145); Total Protein 8.0 g/dL (6.5-8.0)
[2025-05-15 23:04] VITALS: BP 120/82; PULSE 81; RESP 14; TEMP 36.9; O2SAT 99
[2025-05-15 23:25] VITALS: BP 120/82; PULSE 81; RESP 14; TEMP 36.9; O2SAT 99
[2025-05-16 08:12] LABS: Bacterial Vaginosis PCR NEGATIVE (Negative); CT PCR NOT DETECTED (Not Detect.); Candida Group PCR DETECTED (Not Detect); Candida glab krusei PCR NOT DETECTED (Not Detect); NG PCR NOT DETECTED (Not Detect.); Trichomonas vaginalis PCR NOT DETECTED (Not Detect)
[2025-05-16 08:12] LABS: Bacterial Vaginosis PCR NEGATIVE (Negative); CT PCR NOT DETECTED (Not Detect.); Candida Group PCR DETECTED (Not Detect); Candida glab krusei PCR NOT DETECTED (Not Detect); NG PCR NOT DETECTED (Not Detect.); Trichomonas vaginalis PCR NOT DETECTED (Not Detect)
== END 2025-05-15 23:27 | disposition home or self-care (01) ==
PROVIDERS: Physician Assistant Medical; Emergency Provider Emergency Medicine
DX: O98.819 Other maternal infectious and parasitic diseases complicating pregnancy, unspecified trimester (principal); N76.0 Acute vaginitis; Z79.899 Other long term (current) drug therapy
CPT/HCPCS: 36415; 80048; 80076; 81001; 81003; 81025; 81515; 84702; 85025; 86900; 86901; 87086; 87147; 87491; 87591; 99284